=== PATIENT | male | born 1990 | race African-American/Black ===

== ENCOUNTER 2017-10-18 00:24 | Emergency (ER) | payer MEDICAID, SELFPAY ==
[2017-10-18 00:25] VITALS: BP 123/93; PULSE 89; RESP 18; TEMP 36.8; O2SAT 97; BMI 20.3
--- NOTE | 2017-10-18 00:44 | RAD_ITS ---
STUDY: X-RAY - RIGHT HAND REASON FOR EXAM: Male, 27 years old. Right index finger pain status post crush injury. TECHNIQUE: 3 view(s) of the hand. COMPARISON: None. FINDINGS: Normal radiocarpal articulation. Normal distal radioulnar joint. Normal visualized carpal bones. Normal carpal articulations Normal carpometacarpal articulation of the thumb. Normal second through fifth carpometacarpal joints. Normal metacarpi. Normal metacarpophalangeal joint of the thumb. Normal interphalangeal joint of the thumb. Normal proximal and distal phalanges of the thumb. Normal metacarpophalangeal joints of the second through fifth fingers. Normal proximal and distal interphalangeal joints of the second through fifth fingers. Normal phalanges of the second through fifth fingers. The soft tissue structures are unremarkable. RAD/Hand Min 3 Views IMPRESSION: Normal x-ray examination of the hand. Electronically Signed: Diogenes Garcia MD at 1:18 EDT Tel , Service support ,
--- NOTE | 2017-10-18 00:55 | ED.DCSUM_ITS ---
- ER Visit Summary Date of Service: 10/18/17 Chief Complaint: Right index injury History of Present Illness: The patient is a 27 M [id number], crush injury right index finger prior to arrival. Loading washer into a truck. States that tetanus Sunday we had brennan to his left hand. He is working on a car at that time. No anticoagulation medications. No medications taken prior to arrival. Denies history of gastric ulcers or kidney injuries. Physical Examination: General: Alert and oriented ?3, uncomfortable HEENT: Normocephalic, atraumatic. Moist mucosa membranes Neck: supple, nontender. Cardiovascular: Regular rate and rhythm, no murmurs Respiratory: Normal breath sounds, symmetric, no distress Abdomen: Soft, nontender, nondistended Extremities: Right upper extremity: There is ecchymosis distal phalanx of the volar aspect of the index finger. 0.5 cm superficial laceration. No active bleeding. There is mild superficial skin avulsion ulnar aspect lateral to the nailbed. No nail involvement. No active bleeding. No deformities. Neuro: no focal neurological deficits. Test Results: Right hand x-ray: No fracture or dislocation Emergency Department Course and Treatment: Ice, Motrin given. X-ray negative for fracture. Superficial laceration, Dermabond was placed. Wound care discussed. Continue Tylenol Motrin as needed. Given follow-up as an outpatient. Treatment Plan: [] Disposition: Discharge Impression: Crush injury right index. Superficial laceration right index, This note was generated with [employer] dictation software. It may contain incorrect words, spelling, and punctuation that were not noted in review of the chart prior to signing ED Disposition - Plan for ED Patient: Disposition: Home or Assisted Living Chief Complaint: Laceration Diagnosis: Laceration of right index finger w/o foreign body w/o damage to nail, Crushing injury of right index finger, initial encounter Instructions: ED Laceration Ext Skin Glue Referrals: Care Physician,No Primary [Primary Care Provider] - Abraham Chavez DO [STAFF PHYSICIAN] - 5-7 Days
[2017-10-18] MEDS: Ibuprofen 600 MG Tablet PO (00:56)
[2017-10-18 01:30] VITALS: BP 124/68; PULSE 60; RESP 16; O2SAT 98
== END 2017-10-18 01:33 | disposition home or self-care (01) ==
PROVIDERS: Emergency Provider Emergency Medicine
DX: S67.190A Crushing injury of right index finger, initial encounter (principal); S61.210A Laceration without foreign body of right index finger without damage to nail, initial encounter; X58.XXXA Exposure to other specified factors, initial encounter; Y93.9 Activity, unspecified; Y92.9 Unspecified place or not applicable; J45.909 Unspecified asthma, uncomplicated; Z72.0 Tobacco use
CPT/HCPCS: 12001; 73130; 99283

== ENCOUNTER 2024-04-08 19:20 | Emergency (ER) | payer MEDICAID, SELFPAY ==
[2024-04-08 19:21] VITALS: BP 108/77; PULSE 98; RESP 18; TEMP 36.3; O2SAT 95; BMI 18.6
--- NOTE | 2024-04-08 20:03 | ED.RN ---
Pt notin triage area when called to take back to a room
== END 2024-04-08 20:10 | disposition left against medical advice (07) ==
LOC: ED 20:15
DX: R11.2 Nausea with vomiting, unspecified (principal); R19.7 Diarrhea, unspecified